=== PATIENT | male | born 1980 | race Caucasian/White ===

== ENCOUNTER → 2020-09-30 | Outpatient (CLI) | payer OTHER ==
[2020-09-30 20:09] LABS: BASO # 0.1 x10^3/uL (0.0-0.2); BASO % 1 % (0-3); EOS # 0.6 x10^3/uL (0.0-0.7); EOS % 3 % (0-3); HEMATOCRIT 34.9 % (39.0-53.0); HEMOGLOBIN 11.2 g/dL (13.0-17.5); LYMPH # 9.5 x10^3/uL (1.0-4.8); LYMPH % 49 % (24-48); MEAN CORPUSCULAR HEMOGLOBIN 28 pg (25-35); MEAN CORPUSCULAR HGB CONC 32 g/dL (31-37); MEAN CORPUSCULAR VOLUME 86 fL (79-100); MONO # 1.4 x10^3/uL (0.0-1.1); MONO % 7 % (0-9); NEUT # 7.7 x10^3uL (1.8-7.7); NEUT % 40 % (31-73); RED BLOOD COUNT 4.04 x10^6/uL (4.30-5.70); RED CELL DISTRIBUTION WIDTH 14.9 % (11.5-14.5); WHITE BLOOD COUNT 19.3 x10^3/uL (4.0-11.0)
[2020-09-30 20:12] LABS: ALBUMIN/GLOBULIN RATIO 0.6 (1.0-1.7); ALK PHOS 77 U/L (46-116); ALT (SGPT) 38 U/L (16-63); ANION GAP 11 (6-14); AST (SGOT) 22 U/L (15-37); BLOOD UREA NITROGEN 13 mg/dL (8-26); BUN/CREATININE RATIO 11 (6-20); CALCIUM 9.1 mg/dL (8.5-10.1); CARBON DIOXIDE 25 mmol/L (21-32); CHLORIDE 105 mmol/L (98-107); CREATININE 1.2 mg/dL (0.7-1.3); GFR 67.1; GLUCOSE 129 mg/dL (70-99); POTASSIUM 4.5 mmol/L (3.5-5.1); SODIUM 141 mmol/L (136-145); TOTAL PROTEIN 7.8 g/dL (6.4-8.2)
[2020-09-30 20:28] LABS: TOTAL BILIRUBIN < 0.1 mg/dL (0.2-1.0)
[2020-09-30 20:37] LABS: PLATELET COUNT 987 x10^3/uL (140-400)
[2020-09-30 20:40] LABS: % ATYL 7 % (0-0); % BANDS 3 % (0-9); % LYMPHS 44 % (24-48); % MONOS 11 % (0-10); % SEGS 35 % (35-66); PLT ESTIMATE INCREASED (ADEQUATE)
[2020-09-30 20:42] LABS: BURR CELLS PRESENT
== END ==
LOC: LAB 18:58
PROVIDERS: ATTEND Family Medicine
DX: N39.0 Urinary tract infection, site not specified (principal)
CPT/HCPCS: 36415; 80053; 85007; 85025

== ENCOUNTER → 2020-10-01 | Outpatient (CLI) | payer OTHER ==
[2020-10-01 02:34] LABS: BASO # 0.2 x10^3/uL (0.0-0.2); BASO % 1 % (0-3); EOS # 0.8 x10^3/uL (0.0-0.7); EOS % 3 % (0-3); HEMATOCRIT 35.5 % (39.0-53.0); HEMOGLOBIN 11.7 g/dL (13.0-17.5); LYMPH # 14.4 x10^3/uL (1.0-4.8); LYMPH % 57 % (24-48); MEAN CORPUSCULAR HEMOGLOBIN 29 pg (25-35); MEAN CORPUSCULAR HGB CONC 33 g/dL (31-37); MEAN CORPUSCULAR VOLUME 87 fL (79-100); MONO # 1.9 x10^3/uL (0.0-1.1); MONO % 7 % (0-9); NEUT % 32 % (31-73); RED BLOOD COUNT 4.08 x10^6/uL (4.30-5.70); RED CELL DISTRIBUTION WIDTH 14.9 % (11.5-14.5); WHITE BLOOD COUNT 25.2 x10^3/uL (4.0-11.0)
[2020-10-01 02:42] LABS: PLATELET COUNT 957 x10^3/uL (140-400)
[2020-10-01 03:10] LABS: % EOS 1 % (0-5); % LYMPHS 61 % (24-48); % MONOS 7 % (0-10); % SEGS 31 % (35-66); PLT ESTIMATE INCREASED (ADEQUATE)
== END ==
LOC: LAB 02:15
DX: A41.9 Sepsis, unspecified organism (principal)
CPT/HCPCS: 36415; 85007; 85025